=== PATIENT | female | born 2000 | race African-American/Black ===

== ENCOUNTER 2022-07-22 10:36 | Emergency (ER) | payer BC, SELFPAY | END 2022-07-22 11:50 | disposition home or self-care (01) | LOC: NAV ERS 10:36 | DX: J10.1 Influenza due to other identified influenza virus with other respiratory manifestations (principal); Z20.822 Contact with and (suspected) exposure to COVID-19 | CPT/HCPCS: 87081; 87430; 87804; 99283; U0003; U0005 ==